=== PATIENT | female | born 1960 | race Caucasian/White ===

== ENCOUNTER → 2020-05-29 | Day surgery (SDC) | payer OTHER ==
[~2020-05-29] MED LIST: ATIVAN1 MG; DEXAMETHASONE4 MG; DIAMODE2 MG PO; FASLODEX250 MG/5 M IM; FISH OIL500 MG PO; HYDROCODON-ACE1 EA10 PO; IBRANCE100 MG PO; LEVOTHYROXINE75 MCG PO; LORAZEPAM1 MG PO; MAGNESIUM250 M1 PO; MOTRIN IB200 MG PO; MUCINEX600 MG PO; NORCO 5-325 TA1 EACH PO; VERZENIO150 MG PO; VITAMIN B-121000 MC1 PO; VITAMIN B-6100 MG PO; VITAMIN D2000 UNIT PO; VITAMIN E100 UNI3 PO; ZOFRAN ODT4 MG; ZOLEDRONIC4 MG/100 M IV
--- NOTE | 2020-05-29 09:10 | NUR ---
PATIENT AMBULATED INTO DEPARTMENT, STEADY ON FEET. VSS STABLE. PATIENT NOW WAITING FOR DR. AVINA. CONSENT SIGNED. CALL LIGHT IN REACH. NO OTHER NEEDS AT THIS TIME.
--- NOTE | 2020-05-29 12:46 | NUR ---
1200: DR. AVINA IN ROOM TALKING WITH PATIENT ABOUT THORACENTESIS. 1230: THORACENTESIS BY DR. AVINA COMPLETE. PATIENT TOLERATED PROCEDURE WELL. PATIENT DOES C/O OF CHEST TIGHTNESS WITH BREATHING. DR. AVINA AWARE. VS CHECKED. CALL LIGHT WITHIN REACH. 1245: X-RAY IN ROOM TO TAKE CHEST X-RAY.
--- NOTE | 2020-05-29 12:49 | NUR ---
DR. AVINA REVIEWED CHEST X-RAY. PATIENT MAY DISCHARGE WHEN READY. PATIENT STATES "FEELING GOOD". PATIENT GETTING DRESSED.
--- NOTE | 2020-05-29 15:38 | NUR ---
1300: PATIENT DISCHARGED TO HOME AMBULATORY. PATIENT OFFERED WHEELCHAIR. PATIENT DECLINED. THIS RN WALKED WITH PATIENT OUT TO HER TRANSPORT VAN.
--- NOTE | 2020-06-01 08:25 | OR ---
[facility] [address] [place], [place] [address] Signed DATE OF OPERATION: 05/29/2020 SURGEON: Ryan Avina MD PREOPERATIVE DIAGNOSES: 1. Symptomatic right recurrent pleural effusion. 2. Metastatic breast cancer. POSTOPERATIVE DIAGNOSES: 1. Symptomatic right recurrent pleural effusion. 2. Metastatic breast cancer. PROCEDURE: Right-sided thoracentesis (1.5 L). ANESTHESIA: 1% lidocaine. INDICATION: This 59-year-old white woman is a patient of Dr. Laws and Dr. Lloyd and has undergone right mastectomy and axillary dissection in 2016 by me for stage III breast cancer. She did suffer recurrence and metastatic disease and has been managed by Dr. Laws with chemotherapy. She did undergo radiation therapy under the direction of Dr. Graciela Collins previously as well. She has had recurrent right pleural effusion, which is markedly symptomatic for her. She self-referred to [facility] in November and in March for thoracentesis, which was accomplished without problem. She was recently recommended by Dr. Laws to consider right pleurodesis and was referred to me on that basis. I saw her yesterday at which time, she was significantly dyspneic and wished to have thoracentesis once again. Her CT scan performed in April showed possible loculation in the lower lobe on the right side and an increased pleural effusion on the right side. She would be a good candidate for pleurodesis if good expansion of her lung is noted. On that basis today, she is undergoing right thoracentesis for symptom control. Also, to assess as guess can be with plain x-rays her level of full expansion of the lung, which would make her a good candidate for palliative pleurodesis. Other options if pleurodesis is not likely effective would be a PleurX catheter for recurrent pleural fluid removal as necessary. The risk of thoracentesis was reviewed with her, which includes but is not limited to Electronically Signed By: RYAN AVINA MD 06/01/20 0825 PATIENT NAME: OSIRIS RIVERA OPERATIVE REPORT DATE OF : 56 REPORT #: [id number] PHYSICIAN: RYAN AVINA MD PCP: MARIE LLOYD MD REPORT IS CONFIDENTIAL AND NOT TO BE RELEASED WITHOUT AUTHORIZATION [facility] [address] [place] [address] Signed bleeding, infection, pneumothorax, re-expansion pulmonary edema, and other unforeseen complications. All of this she understands and wishes to proceed. FINDINGS: Straw-colored yellow clear fluid was noted from the right pleural space. A pre-procedure chest x-ray showed haziness to 1/2 of the lung field. The upper lung macias quite clear. A postprocedure x-ray is pending. DESCRIPTION OF PROCEDURE: In the Day Surgery Area, in room #8, she was placed in the upright position with arms draped over a Jurado stand and a pillow. The tip of the scapula was identified and the posterior thorax on the right side prepared with a chlorhexidine solution and draped sterilely. A 1% lidocaine was injected directly over the 7th rib. The pleural space was entered and a thin yellow pleural fluid was noted. Using a thoracentesis catheter, direct puncture to the pleural space was made over the 7th rib delivering a straw-colored fluid. A 3-way stopcock and tubing was used to apply the fluid to a Vacutainer bottle. At the 50% (500 mL) frieda flow was discontinued so as to allow her to "catch up" as she has previously had symptoms with withdrawal of only 1 L of fluid. In time reestablishment of flow was undertaken, ultimately removing the single liter of fluid without much in the way of symptoms. She did feel a difference with expansion of the lung. An additional 500 mL was ultimately removed very slowly and cautiously due to some symptoms of "tightness" as she had experienced some previous thoracentesis episodes. Ultimately, we discontinued thoracentesis at 1500 mL total. A Band-Aid was applied after removal of the catheter. A chest x-ray is pending. She had no severe symptoms and generally is doing well. Ryan Avina MD /MODL /[id number] cc: MD Kj Schultz MD Dr. Kristen Riegert Electronically Signed By: RYAN AVINA MD 06/01/20 0825 PATIENT NAME: OSIRIS RIVERA OPERATIVE REPORT DATE OF : 56 REPORT #: [id number] PHYSICIAN: RYAN AVINA MD PCP: MARIE LLOYD MD REPORT IS CONFIDENTIAL AND NOT TO BE RELEASED WITHOUT AUTHORIZATION [address], [place] [address] Signed Sarthak De León Copies: MARIE LLOYD MD, ROBERT C MD ~ Electronically Signed By: RYAN AVINA MD 06/01/20 0825 PATIENT NAME: OSIRIS RIVERA OPERATIVE REPORT DATE OF : 56 REPORT #: [id number] PHYSICIAN: RYAN AVINA MD PCP: MARIE LLOYD MD REPORT IS CONFIDENTIAL AND NOT TO BE RELEASED WITHOUT AUTHORIZATION
== END ==
LOC: OPS 08:52 → DS 09:00
PROC: 0W993ZZ Drainage of Right Pleural Cavity, Percutaneous Approach (ICD-10-PCS; principal; 2020-05-29)
DX: J90 Pleural effusion, not elsewhere classified (principal); C50.911 Malignant neoplasm of unspecified site of right female breast; E03.9 Hypothyroidism, unspecified; F32.9 Major depressive disorder, single episode, unspecified; Z90.11 Acquired absence of right breast and nipple; Z79.899 Other long term (current) drug therapy; Z87.891 Personal history of nicotine dependence
CPT/HCPCS: 32555; 71045

== ENCOUNTER 2020-07-02 09:34 | Day surgery (SDC) | payer OTHER ==
--- NOTE | 2020-07-02 10:01 | NUR ---
PATIENT WAITING IN THE TREATMENT ROOM. GOWN IN PLACE. CALL LIGHT IS WITHIN REACH. PATIENT IS ELECTING TO SIT IN THE FOLDING CHAIR IT IS EASIER FOR HER TO BREATHE THERE.
--- NOTE | 2020-07-06 11:28 | OR ---
[facility] [address] [place], [place] [address] Signed DATE OF OPERATION: 07/02/2020 SURGEON: Ryan Avina MD PREOPERATIVE DIAGNOSES: 1. Recurrent symptomatic right pleural effusion. 2. History of advanced breast cancer. POSTOPERATIVE DIAGNOSES: 1. Recurrent symptomatic right pleural effusion. 2. History of advanced breast cancer. PROCEDURE: Right-sided thoracentesis, 1.25 L. ANESTHESIA: 1% lidocaine. INDICATIONS: This is a very pleasant 59-year-old Ukrainian-[place] Zealander woman, has undergone breast cancer treatment and has had recurrence and is known to have metastatic disease. She remains a patient of Dr. Gamino. She underwent mastectomy by me on the right side, where she was found to have stage III disease at the outset of treatment. She has had recurrence and has developed recurrent right-sided pleural effusion. She underwent right-sided thoracentesis by me a few weeks ago for symptomatic control. I had advocated she consider right pleurodesis. She is still thinking about that. She did have relief of symptoms of dyspnea with her previous thoracentesis. She has had reaccumulation of fluid and wished to undergo thoracentesis again. We have discussed in detail the options of additional management including pleurodesis versus indwelling catheter and so forth. She wishes most on this. For today, right thoracentesis was anticipated to further assess that there was good expansion of the lung to allow right-sided pleurodesis as an effective option. She understands the risks of bleeding, infection, pneumothorax, and so forth and wished to proceed. FINDINGS: Clear yellow fluid was withdrawn from the right pleural space, 1.25 L was removed. The postprocedure chest x-ray showed complete expansion of the lung, no sign of residual effusion. It was noted she has haziness in the left lung field, which was suggestive to me of bilateral effusion, but certainly nothing as large as on the right side. Electronically Signed By: RYAN AVINA MD 07/06/20 1128 PATIENT NAME: OSIRIS RIVERA OPERATIVE REPORT DATE OF : 56 REPORT #: [id number] PHYSICIAN: RYAN AVINA MD PCP: MARIE LLOYD MD REPORT IS CONFIDENTIAL AND NOT TO BE RELEASED WITHOUT AUTHORIZATION [facility] [address] [place], [place] [address] Signed DESCRIPTION OF PROCEDURE: The patient underwent a chest x-ray prior to the procedure showing right-sided haziness and some left lower pleural space haziness as well. She was placed in upright position with arms draped over pillow and the tip of the scapula outlined with a pen. The area was then prepared with a chlorhexidine solution and draped sterilely. Sterile mask, gloves, gown, and so forth were used. A 1% lidocaine was injected over approximately the seventh rib, easily palpated as she has a thinner body habitus in the past. Using a thoracentesis needle catheter system pleural space was entered and aspiration of clear straw-colored fluid was noted. The catheter was advanced into the pleural space. Using a three-way stopcock and Vacutainer bottles, 1.25 L of fluid was drawn off without problem. As expected, she had a small amount of coughing at conclusion of the procedure, which abated quickly. A small amount of discomfort was transient as well. A Band-Aid was applied upon withdrawal of the catheter, no more fluid was withdrawal from the right pleural space. A chest x-ray was performed showing complete expansion of the right lung. CONCLUDING DIAGNOSIS: Recurrent right pleural effusion, symptomatic. PLAN: She will consider further my recommendation for right pleurodesis. Continued observation regarding the left pleural space will be warranted as she does seem to have some effusion developing on that side, though nothing as large as on the right. Ryan Avina MD /MODL /[id number] cc: Paras Gamino MD Copies: PARAS GAMINO MD ~ Electronically Signed By: RYAN AVINA MD 07/06/20 1128 PATIENT NAME: OSIRIS RIVREA OPERATIVE REPORT DATE OF : 56 REPORT #: [id number] PHYSICIAN: RYAN AVINA MD PCP: MARIE LLOYD MD REPORT IS CONFIDENTIAL AND NOT TO BE RELEASED WITHOUT AUTHORIZATION
== END 2020-07-02 11:30 | disposition home or self-care (01) ==
LOC: OPS 09:34 → DS 09:34 → OPS 11:15
PROVIDERS: ATTEND Surgery
PROC: 0W993ZX Drainage of Right Pleural Cavity, Percutaneous Approach, Diagnostic (ICD-10-PCS; principal; 2020-07-02)
DX: C50.919 Malignant neoplasm of unspecified site of unspecified female breast (principal); C79.51 Secondary malignant neoplasm of bone; J91.0 Malignant pleural effusion; G89.3 Neoplasm related pain (acute) (chronic)
CPT/HCPCS: 32555; 71045

== ENCOUNTER 2020-07-20 17:47 | Emergency (ER) | payer OTHER ==
[~2020-07-20] VITALS: Ht 152.4 cm; Wt 52.2 kg
--- OUTSIDE RECORDS SUMMARY | 2020-07-20 17:54 | XMS ---
PreManage Notification: OSIRIS RIVERA Security Assistant Counsel Events No recent Security Events currently on file CRITERIA MET - ELSIP CARE PROVIDERS MARIE LLOYD [facility] Current PHONE: [phone] Caron has no Care Guidelines for this patient. [place] VISIT COUNT (12 MO.) 1 [facility] Alfaro TOTAL 1 NOTE: Visits indicate total known visits. ED/UCC VISIT TRACKING (12 MO.) 07/20/2020 17:52 [facility] [place] TYPE: Emergency COMPLAINT: - SHORTNESS OF BREATH INPATIENT VISIT TRACKING (12 MO.) [facility] TYPE: [facility] COMPLAINT: - HYPOXIA, FEVER [email or web address]
--- NOTE | 2020-07-22 12:08 | OR ---
[facility] [address] [place], [place] [address] Signed DATE OF OPERATION: 07/20/2020 SURGEON: Ryan Avina MD PREOPERATIVE DIAGNOSES: 1. Symptomatic pleural effusions related to stage IV breast cancer. 2. Dominant left-sided pleural effusion. POSTOPERATIVE DIAGNOSES: 1. Symptomatic pleural effusions related to stage IV breast cancer. 2. Dominant left-sided pleural effusion. PROCEDURE: Left-sided thoracentesis 1.4 L. ANESTHESIA: 1% lidocaine. INDICATION: This 60-year-old Ghanaian Armenian woman from [facility] is known to me from the past having undergone right-sided thoracentesis at least twice approximately 3 times for symptomatic pleural effusion. The previous chest x-ray had shown a left-sided pleural effusion developing. I had recommended in the past that she consider palliative pleurodesis of the right side, which she has been considering and most recently has decided that she would like to proceed with it. In the meantime, she developed significant shortness of breath over the past few days. I called my office and I was in the operating room essentially all day and she was recommended if severely short of breath to present to the emergency room. She was evaluated by Dr. Harley and a chest x-ray was performed, which shows a sizable left-sided pleural effusion and haziness on the right side, but not nearly as much pleural effusion fluid on that side. Notably, she is short of breath, is unable to walk more than a few paces due to this issue. I have recommended left-sided thoracentesis anticipating definitive pleurodesis right and left side ultimately. The risks of bleeding, infection, pneumothorax, and so forth were reviewed with her. She understands as does her daughter, who accompanies her. FINDINGS: Straightforward left-sided thoracentesis was performed without complication. Postprocedure chest x-ray is pending. A 1.4 L of neri fluid was withdrawn from the pleural space. As per her usual routine, she did have a fair amount of coughing and some slight chest pain on the left side upon withdrawal of about 800 mL. Sequential Electronically Signed By: RYAN AVINA MD 07/22/20 1208 PATIENT NAME: OSIRIS RIVERA OPERATIVE REPORT DATE OF : 56 REPORT #: [id number] PHYSICIAN: RYAN AVINA MD PCP: MARIE LLOYD MD REPORT IS CONFIDENTIAL AND NOT TO BE RELEASED WITHOUT AUTHORIZATION [facility] [address] [place], [place] [address] Signed withdrawal of additional amount of fluid allowed for complete clearance of the pleural space clinically. She tolerated procedure well in aggregate. DESCRIPTION OF PROCEDURE: In the upright position with arms draped over a Jurado stand, the tip of the scapula was marked with a marker and the left side of the posterior chest was prepared with a chlorhexidine solution and draped sterilely. A 1% lidocaine was injected over likely the 7th rib. The pleural space was entered with the thin needle with drying of pleural fluid without problem. A thoracentesis catheter with three-way stopcock was then carefully passed over the 7th rib into the pleural space with groin fluid and passing the flexible angiocatheter without impediment. Using the stopcock of fluid was transferred from the left pleural space to the 1 L of Vacutainer bottle. Withdrawal of fluid was slowed down at about 800 mL when she began to have some coughing and some discomfort, which is expected in such situations. Sequential withdrawal of fluid was then undertaken, ultimately allowing for withdrawal of 1.4 L of pleural fluid. At that point, there was no withdrawal of any more fluid and I believe the left pleural space is tapped dry at this point. Chest x-ray is pending. A Band-Aid was applied. MD MELANIE Navas/MAURICIOL /[id number] Copies: ~ Electronically Signed By: RYAN AIVNA MD 07/22/20 1208 PATIENT NAME: OSIRIS RIVERA OPERATIVE REPORT DATE OF : 56 REPORT #: [id number] PHYSICIAN: RYAN AVINA MD PCP: MARIE LLOYD MD REPORT IS CONFIDENTIAL AND NOT TO BE RELEASED WITHOUT AUTHORIZATION
--- NOTE | 2020-07-22 12:08 | CONS ---
[facility] [address] [place], [place] [address] Signed DATE OF CONSULTATION: 07/20/2020 CONSULTING PHYSICIAN: Ryan Avina MD REQUESTING PHYSICIAN: Dr. Harley [facility]. PROBLEM: Symptomatic pleural effusion, left greater than right. HISTORY OF PRESENT ILLNESS: This 60-year-old white woman is known to have stage IV breast cancer and has undergone thoracentesis by me on the right side in the past for palliative intent. She had bulked at the idea of definitive pleurodesis, but more recently has agreed that might be advisable. She presented to the emergency room after being directed there by my office in my absence while in the operating room today, was evaluated by Dr. Driver for her shortness of breath, which has been progressive and significant. She has had no associated hemoptysis. A chest x-ray was performed, which showed a left-sided pleural effusion far greater in size than on the right. There was some haziness in the right side, but not nearly as much as pleural fluid is on the left. The patient has had no other issues and has no particular pain in the chest or elsewhere. REVIEW OF SYSTEMS: No hemoptysis or hematemesis. Does have shortness of breath, much limited activity level related to her dyspnea. PHYSICAL EXAMINATION: GENERAL: A relatively thin white woman with a heavy Azeri accent (originally from [place]). NECK: Shows no thyromegaly or cervical adenopathy. There is no jugular venous distention or tracheal deviation. CHEST: Shows diminished respiratory excursion. The chest x-ray shows a sizable left pleural effusion, right side hazy, but far less in size of pleural effusion. EXTREMITIES: Show no clubbing, cyanosis, or edema. ASSESSMENT AND PLAN: She is short of breath related to pleural effusion, this time more dominantly on the left side. I have offered thoracentesis. A definitive plan for pleurodesis might be undertaken. I have made arrangements for consideration of thoracoscopic pleurodesis versus chest tube related chemical pleurodesis. The definitive question regarding pleurodesis is dependent on full expansion of the lung to allow apposition of the Electronically Signed By: RYAN AVINA MD 07/22/20 1208 PATIENT NAME: OSIRIS RIVERA CONSULTATION DATE OF : 56 REPORT #: [id number] PHYSICIAN: RYAN AVINA MD PCP: MARIE LLOYD MD REPORT IS CONFIDENTIAL AND NOT TO BE RELEASED WITHOUT AUTHORIZATION [facility] [address] [place] [address] Signed visceral and parietal pleura. She is aware of that. The risks of bleeding, infection, pneumothorax, and so forth were reviewed with her and her daughter, who was present anticipating thoracentesis. MD MELANIE Navas/CORBIN /[id number] cc: MD Paras WILSON MD Copies: PARAS GAMINO MD ~ Electronically Signed By: RYAN AVINA MD 07/22/20 1208 PATIENT NAME: OSIRIS RIVERA CONSULTATION DATE OF : 56 REPORT #: [id number] PHYSICIAN: RYAN AVINA MD PCP: MARIE LLOYD MD REPORT IS CONFIDENTIAL AND NOT TO BE RELEASED WITHOUT AUTHORIZATION
== END 2020-07-20 20:41 | disposition home or self-care (01) ==
LOC: ED 17:47
DX: C78.00 Secondary malignant neoplasm of unspecified lung (principal); C79.51 Secondary malignant neoplasm of bone; C50.919 Malignant neoplasm of unspecified site of unspecified female breast; J91.0 Malignant pleural effusion; E03.9 Hypothyroidism, unspecified; Z87.891 Personal history of nicotine dependence; Z79.899 Other long term (current) drug therapy
CPT/HCPCS: 71045; 80053; 83735; 84484; 85025; 99285-25

== ENCOUNTER 2020-07-24 11:03 | Inpatient (IN) | payer OTHER ==
[~2020-07-24] VITALS: Ht 152.4 cm; Wt 50.9 kg
--- NOTE | ~2020-07-24 | DS ---
[facility] [address] [place], [place] [address] Draft ADMISSION DATE: 07/30/2020 DISCHARGE DATE: 08/05/2020 REASON FOR ADMISSION: This 60-year-old [place] Konger-Indian woman, who is from [facility] and a patient of Dr. Benja Lloyd and Dr. Paras Gamino. She is known to have metastatic breast cancer with bilateral pleural effusions. Most recently, the left side more problematic. Metastatic breast cancer is not only to the lung and pleura, but to bones and elsewhere. She is admitted for palliative left-sided pleurodesis. PERTINENT PHYSICAL EXAMINATION: GENERAL: A pleasant white woman, who is alert and oriented. Does look chronically ill. HEENT: Trachea midline. CHEST: Shows diminished breath sounds bilaterally. She has no stridor. She is slightly hoarse. There is no jugular venous distention. ABDOMEN: Soft and nontender. Surgical absence of the right breast and implant is noted on the left side. EXTREMITIES: Show no clubbing, cyanosis, or edema. HOSPITAL COURSE: On July 30, 2020, she underwent left-sided thoracoscopy with talc pleurodesis. Delivery of a talc without an insufflator was challenging and 3 mg doses were used. A chest tube was placed. Postoperatively, she had only mild discomfort related to the procedure. Followup chest x-ray was performed showing a tiny apical pneumothorax, but no sign of recurrence of pleural fluid. Chest tube in the first 48 hours did put out a fair amount of serous fluid. Good function of the chest tube was noted with respiratory variation and so on. There is no sign of air leak. Mindful of the uncertainty of talc poudrage pleurodesis attempt. Additional gram of doxycycline and 100 mL of saline was administered via the chest tube on July 31, 2020. This caused a fair amount of discomfort in her pleural space, which was addressed with IV medication with good benefit. She was noted to have a slight air leak at that time. A followup chest x-ray showed an apical pneumothorax, which over the ensuing days became less and less. Within 48 hours, the chest tube was completely nonfunctional. There was PATIENT NAME: OSIRIS RIVERA DISCHARGE SUMMARY DATE OF : 56 REPORT #: [id number] PHYSICIAN: RYAN AVINA MD PCP: BENJA LLOYD MD REPORT IS CONFIDENTIAL AND NOT TO BE RELEASED WITHOUT AUTHORIZATION [facility] [address] [place], [place] [address] Draft no air leak or respiratory variation. The chest tube was removed. Serial chest x-ray showed the apical pneumothorax to be diminishing in size. The patient was most comfortable with supplemental oxygen, use of 2 L nasal cannula continuously. She was qualified for home oxygen, but denied by [facility] for payment of that as it did not fit their strict criteria for home oxygen therapy. Re-evaluation in 2-4 weeks as an outpatient will be undertaken and I am certain that she will still qualify. A chest x-ray performed the day prior to discharge showed a 9 mm apical pneumothorax, haziness in the parenchyma of the left lung, but no sign of large effusion as she had previously. Additionally, the right side showed a complex probably loculated right basilar process with some amount of effusion. Going forward, options of management of the right side might include placement of a PleurX catheter as it is unlikely that her right lung would inflate to allow for a pleurodesis on that side. By the time of discharge, she is medically stationary and doing reasonably well following her palliative left-sided thoracoscopic talc and doxycycline pleurodesis. DISCHARGE MEDICATIONS: Will include: 1. Lortab liquid 7.5/325, 15 mL p.o. q.6 hours as needed for pain, 240 mL. 2. Tylenol plain 500 mg tablets two tablets p.o. q.6 hours as needed for pain, #60 (patient prefers crushed form). 3. Pepcid 20 mg tablets p.o. b.i.d., #60. 4. Synthroid 100 mcg p.o. daily. 5. Ferrous gluconate multivitamin liquid 15 mL p.o. daily. 6. Albuterol inhaler one puff q.6 hours as needed for shortness of breath. Additionally, she will have Zofran all dissolving 4 mg tablets q.6 hours as needed for nausea. FOLLOW-UP PLANS: Given the difficulty for her to travel from so far away in [place] as well as impending adverse weather in this fall and winter, phone followup will be anticipated. Her primary care provider is Dr. Lloyd in [place]. We are anticipating he will additionally follow up with her. Oxygen qualification has been undertaken once while hospitalized and if repeated may more fully enable her to have home oxygen under the coverage parameters for [facility]. PATIENT NAME: OSIRIS RIVERA DISCHARGE SUMMARY DATE OF : 56 REPORT #: [id number] PHYSICIAN: RYAN AVINA MD PCP: BENJA LLOYD MD REPORT IS CONFIDENTIAL AND NOT TO BE RELEASED WITHOUT AUTHORIZATION [place] [phone] Draft DISCHARGE DIAGNOSES: 1. Bilateral malignant pleural effusion secondary to breast cancer, left greater than right. 2. Status post thoracoscopic talc and doxycycline left-sided pleurodesis, July 30, 2020. 3. Additional doxycycline left-sided pleurodesis via chest tube at bedside, July 31, 2020. 4. Chronic episodic nausea and vomiting, etiology unknown. 5. History of stage III breast cancer progression to distant metastatic lesion including pulmonary parenchyma and pleural space and bones related to right-sided infiltrating ductal carcinoma, status post total mastectomy and axillary dissection in 2017. 6. Hypothyroidism. MD MELANIE Navas/MODL /[id number] cc: MD Benja Lama MD Copies: PARAS GAMINO MD, DANIEL C MD ~ PATIENT NAME: OSIRIS RIVERA DISCHARGE SUMMARY DATE OF : 56 REPORT #: [id number] PHYSICIAN: RYAN AVINA MD PCP: BENJA LLOYD MD REPORT IS CONFIDENTIAL AND NOT TO BE RELEASED WITHOUT AUTHORIZATION
[~2020-07-24 11:03] MED LIST changes: +HYDROCODONE CO120 ML; +LEVOTHYROXINE100 MCG PO; -LEVOTHYROXINE75 MCG PO; -NORCO 5-325 TA1 EACH PO
[2020-07-27] MEDS ORDERED: MULTI-VITE9 MG/15 ML PO (17:20)
--- NOTE | 2020-07-30 12:01 | NUR ---
07/30/20 1201 Melodie Villegas 1150 PATIENT ARRIVES TO PACU UNRESPONSIVE TO PAIN. REQUIRES RN TO HOLD JAW THRUST, OTHERWISE FULL AIRWAY OCCULSION. MASK AT 6 LITERS. PATIENT HAS CHEST TUBE LEFT CHEST WALL ATTACHED TO SUCTION. 1159 PATIENT CONTINUES TO UNRESPONSIVE TO PAIN. RN CONTINUES TO HOLD JAW THRUST.
--- NOTE | 2020-07-30 13:43 | NUR ---
PT RESTING IN SEMIFOWLERS POSITION IN BED ALERT AND ORIENTED CALL LIGHT AND H2O IN REACH. CHEST TUBE APPEARS TO BE FUNCTIONING CORRECTLY WITH LIWS. PT SATTING AT 98% PER PULSE OXIMETER ON 2LPNC. PT DENIES SOB OR NAUSEA BUT REPORTS 5/10 PAIN TO LEFT UPPER SIDE AT CHEST TUBE SITE AND CHRONIC BACK PAIN ASWELL. PRN PO TYLENOL CRUSHED AND MIXED WITH WATER PER PT REQUEST. PT DENIES FURTHER NEEDS OR CONCERNS.
--- NOTE | 2020-07-30 16:03 | NUR ---
Pt resting in semifowlers position in bed denies needs or concerns, o2 sat 98% on 2lpnc. Chest tube appears to be functioning appropriatley on liws. Call light and h2o in reach. pt denies nausea, sob and states pain level feels like it is coming down.
--- NOTE | 2020-07-30 17:45 | NUR ---
PT RESTING IN SEMIFOWLERS POSITION IN BED ALERT AND ORIENTED, DENIES SOB, [place] AND STATES PAIN IS TOLERABLE. CALL LIGHT AND H2O IN REACH. CHEST TUBE REMAINS TO LIWS AND OPERATING WNL. ASSESSMENT COMPLETED. PT DENIES NEEDS OR CONCERNS.
--- NOTE | 2020-07-30 19:44 | NUR ---
C/O BEING SICK TO HER STOMACH, FEELING NAUSEATED. MEDICATED WITH ZOFRAN 4MG IV. ON ROOM AIR, OLD SURGICAL SITE R BREAT, R AM RESTRICTED. L SIDED CHEST TUBE IN PLACE, PATENT. SCDS IN PLACE, WILL COMPLETE ASSESSMENT LATER AFTER SHE FEEL BETTER WAND REASSESS AT 2130 HER REQUEST. REPOSITONED IN BED, HOB ELEVATED. USES CALL LIGHT AND FLUIDS AT BEDSIDE
--- NOTE | 2020-07-30 22:00 | NUR ---
2PA PIVOT PT TO BSC, PT VOIDED, PT STOOD UP TO STRETCH FOR A SECOND BEFORE GETTING BK INTO BED, 2PA PT WITH TUBE MGMT, INC. CHEST TUBE, IV, O2 NC, AND CPOX WIRE, RN IN WITH PT, NO FURTHER REQUESTS AT THIS TIME, PROVIDED WARM BLANKET TO PT
--- NOTE | 2020-07-30 22:17 | NUR ---
up to bsc, voided, back to bed, tolerated well, no sob, on room air. l chest tube patent, scds in place, tolerating liquids well, no further c/o feeling nauseated. scheduled tylenol given mixed/disolved in warm water.
--- NOTE | 2020-07-30 22:29 | NUR ---
DR AVINA IN ROOM EARLIER TO SEE PT.
--- NOTE | 2020-07-31 00:12 | NUR ---
PT CALLED TO GET UP TO BSC, 2PA STAND WITH TUBE MGMT, BK VOIDED AND BK IN BED, SCDS ON CPOX ON, PT REQUESTING PAIN MED, RN IN TO ASSESS PT, NO FURTHER REQUESTS AT THIS TIME
--- NOTE | 2020-07-31 00:15 | NUR ---
up to bsc, back to bed, tolerated well, O2 1L NC, sats 94%, c/o L sided pain, medicated with 2 [place]
--- NOTE | 2020-07-31 03:10 | NUR ---
resting, no c/o pain, no distress, o2 0.5nc, CPOX 95%, call light at bedside L chest tube patnt
--- NOTE | 2020-07-31 04:09 | NUR ---
restin, eyes closed, o2 0.5L NC, no distress, ivf infusing, l chesst tube patent scds in place
--- NOTE | 2020-07-31 05:57 | NUR ---
pt had some discharge from ct insertion site, reinforced with abd pad. c/o feeling nauseated. medicated with zofran 8mg IV. awake, no further c/o pain, declines to take Tylenol scheduled as she is feeling sick to her stomach at this time.
--- NOTE | 2020-07-31 06:44 | NUR ---
Pt O2 increaed to 1L earlier as sats were 84-89%, pt was moving around in bed going through her travel bag. Has been medicated with scheduled Tylenol anad she declined the 0600 dosa. Medicated with [place] x1 per c/o generalized pain. Medicated with Zofran 2x per c/o n/v, no emesis noted, prior to that pt was tolerating ice chips and fluids. L chest tube was leasking ss drainage,at insertion site, area reinforced with abd. gown changed. Pleurovac to suction had total 185cc. lungs dim at bases and left side. Up to bsc with 1pa, voiding qs, ivf infusing w/o problems. Pleasant and coop. uses call light and helps with repositioning, scds in place.
[2020-07-31] MEDS ORDERED: PROAIR HFA8.5 GM INH (07:25)
--- NOTE | 2020-07-31 07:29 | NUR ---
PT RESTING IN BED EYES CLOSED AND RESPIRATIONS EVEN AND UNLABORED. CALL LIGHT AND H2O IN REACH. PT APPEARS TO BE SLEEPING COMFORTABLY. REPORT RECEIVED FROM MARITZA VIRGEN.
--- NOTE | 2020-07-31 09:21 | NUR ---
PT C/O PAIN IN THE CHEST TUBE AREA AND BONE PAIN AT THIS TIME 7/10 MEDICATED FOR PAIN AT THIS TIME WITH 2 TABS OF PERCETS AT THIS TIME.
--- NOTE | 2020-07-31 09:37 | NUR ---
pt sitting up in bed alert and oriented. Assessment completed. dressing to chest tube saturated and coming off. Dressing was replaced per Dr Muñoz's verbal instructions. Old dressing caerfuly removed, site cleansed with ns and pat dried with guaze and guaze and tape reapplied to insertions site. Chest tube remains to LIWS and appears to be oporating correctly and producing moderate serosang output to chest tube canister. Call light and h2o in reach. Pt reports moderate pain to abdomen and to left chest tube insertion site so IV toradol administered per pt request. Pt denies further needs or concerns.
--- NOTE | 2020-07-31 09:40 | NUR ---
Met with pt and had long visit about her future and what she thinks her needs will be. She states her PCP has been discussing hospice with her, she is also aware she will need a cg in the future as she lives alone. Daughter visits daily, but has family and works. Answered question about caregivers and insurance/medicare not paying for cg in the home. Discussed [employer] and possibility of a state paid cg. Information given for [employer], she already has the numbers as she uses other programs. Hospice discussed and their criteria. We also discussed [facility]. She is already aware of most of the information. Feels she is not ready at this time for these programs, but stating she knows she will need. Discussed if she qualifies for CG through [facility] it can take [address]. Feels she is ok at this point and plans on dc to home when ok with Dr. Muñoz. 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 She also states she has neighbors who check on her daily and are very supportive. Discussed if she feels she will need a walker and she states she might. Pt has chest tube in place, will ask Dr. Muñoz if PT/OT can eval when she is able to get up. Pt complains of pain, nurse updated and discussed I will see Martha on Monday. She denies other needs.
--- NOTE | 2020-07-31 11:54 | NUR ---
PT ALERT, ORIENTED AND LAYING IN BED READING. NOT BOTHERED BY TV NOT WORKING. PT FEELS BETTER, CHEST TUBE WORKING. PT HAS REALLY GOOD ATTITUDE, TAKING ONE DAY AT A TIME. REQUESTED PRAYER, LEFT G.POST WILL FOLLOW
--- NOTE | 2020-07-31 13:07 | NUR ---
PATIENT WAS EATING LUNCH WHEN I STOPPED BY AROUND 12:30. SHE IS WORKING ON EATING HER VEGETABLES - SHE WAS EATING PEAS WITH CHICKEN BREAS AND PASTA. SHE STATES DUE TO HAVING CANCER SHE HAS GRADUALLY BEEN LOSING WEIGHT. SHE NEEDS SOFT FOODS TO EAT, TOO. SHE HAS A GREENS POWDER THAT SHE MAKES A GREEN DRINK WITH AT HOME. SHE ALSO HAS A JUICER WHICH SHE USES FROM TIME TO TIME. SHE ASKED IF THERE WAS ANYTHING IN PARTICULAR SHE SHOULD BE DOING AND I MENTIONED BE SURE TO CONSUME PROTEIN THROUGHOUT THE DAY, AIM FOR DIFFERENT COLORS OF FRUITS AND VEGGIES, AND KEEP PROCESSED FOODS AND SUGARY BEVERAGES TO A MINIMUM. I ALSO EXPLAINED THAT IF SHE FINDS SHE CONTINUES TO LOSE WEIGHT, SHE CAN ADD OIL, BUTTER, OR CHEESE TO FOOD TO INCREASE THE CALORIES WITHOUT INCREASING THE VOLUME OF FOOD. SHE IS ON A REGULAR DIET WHICH IS APPROPRIATE. WILL CONTINUE TO MONITOR.
--- NOTE | 2020-07-31 14:55 | NUR ---
DR AVINA IN AT BEDSIDE ADMINISTERING ANTIBIOTIC THROUGH CHEST TUBE. PT REPORTS 9/10 PAIN WITH MEDICATION ADMINISTRATION, 4MG IV DILAUDID ADMINISTERED PER PT AND MD REQUEST. CALL LIGHT AND H2O IN REACH. PT SATTING 97% ON 2LPNC. DRESSING TO CHEST TUBE SATURATED AND AIR LEAK PRESENT SO MD REPLACED DRESSING AT THIS TIME. AIR LEAK NO LONGER PRESENT AND DRESSING CDI. CHEST TUBE APPEARS TO BE FUNCTIONING WNL. PT DENIES FURTHER NEEDS OR CONCERNS.
--- NOTE | 2020-07-31 16:53 | NUR ---
PT ASSISTED UP TO CHAIR FOR DINNER. PT TOLERATED AMBULATION WELL. PT STATES SHE IS COMFORTABLE AT THIS TIME. CALL LIGHT AND H2O IN REACH.
--- NOTE | 2020-07-31 17:20 | EKG ---
[facility] [address] [facility] [place], [place] [address] Signed Normal sinus rhythm Normal ECG No previous ECGs available Confirmed by JODI MARK DO ([id number]) on 07/31/2020 5:20:41 PM Electronically Signed By: JODI MARK DO 07/31/20 1720 PATIENT NAME: OSIRIS RIVERA Electrocardiogram DATE OF : 56 PHYSICIAN: JODI MARK DO REPORT #: [id number] REPORT IS CONFIDENTIAL AND NOT TO BE RELEASED WITHOUT AUTHORIZATION
--- NOTE | 2020-07-31 19:15 | NUR ---
Shift report recieved by RN. Pt is up in chair, L sided chest tube in place, clean, dry and intact. No s/s of infection noted. Pt states no pain at this time. Call light within reach, no further concerns or needs.
--- NOTE | 2020-07-31 21:33 | NUR ---
pt called, 1pa/sba with chest tube managemnt on to the bsc, pt bk in bed at this time, no further request at this time, will return to pt with rn for pm assessment, meds, and vitals
--- NOTE | 2020-07-31 22:15 | NUR ---
PT LYING IN BED, ASSESSMENT COMPLETE, I AND O'S COMPLETED SCHEDULED MEDS GIVEN. PRN PAIN MEDICATION GIVEN, PAIN SCALE 7/10. CHEST TUBE DRESSING C/D/I, TUBE PATENT AND WORKING APPROPRIATLY. NO SIGNS OF AIR LEAK. PT WAS ASSISTED BY WAXER OPERATOR 1P SBA TO THE COMMODE. CALL LIGHT WITHIN REACH,NO UNLABORED BREATHING AND NO FURTHER CONCERNS OR NEEDS AT THIS TIME.
--- NOTE | 2020-07-31 22:40 | NUR ---
IN RM TO TAKE VITALS PER RN REQUEST, RN COMPLETING ASSESSMENT, GOT PT UP TO THE BSC, ASST WITH TUBE MGMT, PT BK IN BED NOW, URINE OUTPUT RECORDED AND DOCUMENTED PER 2200 SHIFT VITALS, SCDS BK IN PLACE, CPOX BK ON, NO FURTHER REQUEST AT THIS TIME
--- NOTE | 2020-08-01 01:27 | NUR ---
PT RESTING QUIETLY IN BED WITH EYES CLOSED, CPOX IN PLACE. 1.5LNC IN PLACE, O2 SAT AND HR WNL. CHEST TUBE TO LEFT SIDE PATENT AND WORKING APPROPERIATELY, NO SIGNS OF AIR LEAK NOTED. CONNECTED TO CONTINUOUS LOW WALL SUCTION. PT APPEARS COMFORTABLE, CALL LIGHT IN REACH.
--- NOTE | 2020-08-01 03:51 | NUR ---
PT RESTING IN BED WITH CPOX IN PLACE, 1.5LNC. SPO2 AND HR WNL. NO DISTRESS NOTED. CHEST TUBE TO LEFT SIDE APPEARS TO BE WORKING APPROPERIATELY, NO SIGNS OF AIR LEAK NOTED. CALL LIGHT IN REACH.
--- NOTE | 2020-08-01 04:39 | NUR ---
PT RESTING IN BED, EYES CLOSED. LR CONTINUOUS RUNNING. CALL LIGHT WITHIN REACH. NO FURTHER CONCERNS OR NEEDS.
--- NOTE | 2020-08-01 05:26 | NUR ---
PT HAD A GOOD NIGHT, SLEPT FOR MOST OF THE SHIFT. VSS, CPOX IN PLACE. PT ON 1.5LNC. CHEST TUBE TO LEFT SIDE, DRESSING C/D/I, WORKING APPROPERIATELY. NO SIGNS OF AIR LEAK NOTED. PT 1PA WITH AMBULATION, CALLS APPROPERIATELY. IV FLUIDS INFUSING, VOIDING QS. NO BM THIS SHIFT. PAIN CONTROLLED WITH PRN PAIN MEDICATIONS.
--- NOTE | 2020-08-01 06:04 | NUR ---
scheduled thyroid med given along with prn toradol for moderate 4-5/10 pain (see emar). tylenol declined by pt. assessment complete, no new changes or concerns. dressing remains c/d/i, chest tube to left side patent, no signs of air leak noted. pt deneis additional needs, call light in reach.
--- NOTE | 2020-08-01 07:45 | NUR ---
PATIENT SITTING UP IN BED. WHITE BOARD UPDATED. PATIENT'S HANDS AND FACE WASHED. CALL LIGHT WITHIN REACH. NO OTHER NEEDS AT THIS TIME
--- NOTE | 2020-08-01 08:18 | NUR ---
CALL LIGHT ANSWERED. PATIENT ASSISTED TO USE THE BASE COMMODE. PATIENT TRANSFERRED TO CHAIR. TWO PERSON ASSISTING. SETS UP TABLE FOR BREAKFAST. LINENS CHANGED. CALL LIGHT WITHIN REACH. NO OTHER NEEDS AT THIS TIME
--- NOTE | 2020-08-01 08:50 | NUR ---
PT SITTING UP IN CHAIR EATING BREAKFAST. AM MEDS ADMINISTERED AND ASSESSMENT COMPLETED. CALL LIGHT AND H2O IN REACH. PT DENIES SOB, NAUSEA OR PAIN. PT REMAINS SATTING IN MID 90'S ON 2LPNC. FRESH H2O AND APPLES JUICE PROVIDED PER PT REQUEST. WARM BLANKET ALSO PROVIDED. NO FURTHER NEEDS OR CONCERNS VOICED.
--- NOTE | 2020-08-01 09:21 | NUR ---
PATIENT SITTING UP IN CHAIR. VITAL SIGNS AND I&O DONE. HIGH BLOOD PRESSURE. RN NOTIFIED. CALL LIGHT WITHIN REACH. NO OTHER NEEDS AT THIS TIME
--- NOTE | 2020-08-01 11:09 | NUR ---
IN TO SEE PATIENT, LUNCH ORDERED PER PT. IT WAS NOTED THAT PT'S CHEST TUBE HAS NO TIDALING OF THE WATER IN WATER SEAL CHAMBER AND NO BUBBLING PRESENT EITHER. DRESSING CHANGED AND CHEST TUBE SUCTION CHAMBER NEARLY FULL SO THIS WAS REPLACED WITH NEW CHAMBER AND STILL NO CHANGE. DR AVINA NOTIFIED OF THIS. NO NEW ORDERS RECEIVED FROM MD. PT'S O2 SATS REMAIN IN MID 90'S ON 2LPNC AND PT DENIES SOB BUT STATES SHE HAS BEEN COUGHING UP SOME PHLEGM SINCE LAST NIGHT. COUGHING UP SOME PHLEGM SINCE LAST NIGHT. NO NEW ORDERS RECEIVED FROM .
--- NOTE | 2020-08-01 13:51 | NUR ---
PATIENT SITTING UP IN BED. VITAL SIGNS AND I&O DONE. HIGH BLOOD PRESSURE. RN NOTIFIED. ICE WATER GIVEN. CALL LIGHT WITHIN REACH. NO OTHER NEEDS AT THIS TIME
--- NOTE | 2020-08-01 14:00 | NUR ---
DR AVINA NOTIFIED OF ELEVATED BLOOD PRESSURE.
--- NOTE | 2020-08-01 15:14 | NUR ---
CALL LIGHT ANSWERED.PATIENT RESTING IN BED. PATIENT ASSISTED TO USE THE BASE COMMODE. TWO PERSON ASSISTING. PATIENT BACKS TO BED. CALL LIGHT WITHIN REACH. NO OTHER NEEDS AT THIS TIME
--- NOTE | 2020-08-01 16:59 | NUR ---
PATIENT RESTING IN BED. VITAL SIGNS AND I&O DONE. CALL LIGHT WITHIN REACH. NO OTHER NEEDS AT THIS TIME
--- NOTE | 2020-08-01 19:51 | NUR ---
Shift report recieved by RN. Pt lying on bed, L sided occlusive dressing CDI. Nitro paste in place on upper left chest. No unlabored breathing. Call light withing reach. White board updated. No concerns or needs at this time.
--- NOTE | 2020-08-01 20:10 | NUR ---
pt up from the toilet, abmu in the before getting in to bed, will be in to give meds and rn pm assessment shortly
--- NOTE | 2020-08-01 20:17 | NUR ---
PT CALLED TO USE RESTROOM. SBA TO RESTROOM SHE WILL CALL WHEN SHE IS READY TO GO BACK TO BED.
--- NOTE | 2020-08-01 21:03 | NUR ---
IN RM TO TAKE VITALS, RN TO BE IN RM SHORLY, INFORMED RN ABOUT HIGH BP, TAKING BP AGAIN WITH THE RN
--- NOTE | 2020-08-01 21:30 | NUR ---
PT LYING IN BED, SCHEDULED MEDS GIVEN AND ASSESSMENT COMPLETE. VS AND I AND O'S DONE BY HUMAN RESOURCES COMPLIANCE MANAGER. PT REPORTS UNABLE TO HAVE A BM, PRUNE JUICE OFFERED, PT ACCEPTS. BOWEL TONES ACTIVE ALL FOUR QUADRANTS. PT REFUSED HAVING PAIN. NO UNLAVORED BREATHING. OCCLUSIVE DRESSING ON L SIDE CDI. NO UNLABORED BREATHING. RR WNL. NO FURTHER CONCERNS OR NEEDS.
--- NOTE | 2020-08-01 23:06 | NUR ---
PT RESTING QUIETLY IN BED WITH EYES CLOSED, RR WNL. CPOX IN PLACE WITH 1.5LNC, SPO2 91%, HR 107. NO DISTRESS NOTED. CALL LIGHT IN REACH.
--- NOTE | 2020-08-02 00:50 | NUR ---
PT RECENTLY UP WITH LABEL CODER TO VOID AND IS BACK IN BED. PT REPORTED MILD DIZZINESS BUT QUICKLY RESOLVED. VS STABLE, CPOX IN PLACE. 1 1/2 L NC.HR MILD TACHY AT 107. NITROPASTE REMOVED FROM LEFT CHEST. PRN PAIN MEDICATION GIVEN WITH ZOFRAN. JUICE OFFERED FOR CONSTIPATION BUT PT DECLINED. PT REPORTS INCREASE IN PASSING GAS. NO BM. NO FURTHER CONCERNS OR NEEDS AT THIS TIME.
--- NOTE | 2020-08-02 02:42 | NUR ---
OTHER NURSE ASSISTED PT TO THE RESTROOM AND REPOSITION. PT STATES THAT HE HAS NOT HAD ANY PAIN OR NUMBNESS AND TINGLING.I AND O'S CHARTED. NO UNLABRED BREATHING. RR WITHIN NORMAL LIMITS. OCCLUSINE DRESSING CDI. CALL LIGHT WITHIN REACH. NO FURTHER CONCERNS.
--- NOTE | 2020-08-02 04:26 | NUR ---
PT LYING IN BED, ASSESSMENT COMPLETE, STATES THAT SHE FEELS BETTER TAKING JUST ONE PERCOCET. CALL LIGHT WITHIN REACH, NO FURTHER CONCERNS OR NEEDS AT THIS TIME.
--- NOTE | 2020-08-02 06:55 | NUR ---
XRAY HERE, COMPLETE, GOT PT UP TO THE TOILET SBA WITH IV AND O2NC, PT VOIDED, NOW UP TO THE CHAIR, FRESH ICE WATER GIVEN, NO FURTHER REQUEST AT THIS TIME
--- NOTE | 2020-08-02 08:08 | NUR ---
NOTIFIED DR AVINA OF PT'S CONSTIPATION AND NO BM SINCE 07/29. NEW ORDER RECEIVED, ALSO UPDATED ON PT'S CURRENT CONDITION. NO FURTHER ORDERS AT THIS TIME.
--- NOTE | 2020-08-02 09:45 | NUR ---
PATIENT AWAKE, STANDING IN ROOM. "HOPING FOR A BM" VITALS AND I&OS CHARTED. FACE AND HANDS WASHED
--- NOTE | 2020-08-02 12:50 | NUR ---
ANSWERED CALL LIGHT, SBA BACK TO BED. SMALL FORMED BM. PATIENT REPORTS SHE FEELS LIKE "THERES STILL MORE" ATE VERY LITTLE LUNCH. WARM BLANKET PROVIDED AND CALL LIGHT/PERSONAL ITEMS IN REACH
--- NOTE | 2020-08-02 14:18 | NUR ---
PT REPORTS PERSISTING CONSTIPATION, PT STATES "I FEEL LIKE I'M STILL BACKED UP AND CONSTIPATED I COULD USE SOME MORE MEDICINE". MOM ADMNISTERED PER PT REQEUST. ASSESSMENT COMPLETED. PT DENIES FURTHER NEEDS. CALLLIGHT AND H2O IN REACH.
--- NOTE | 2020-08-02 14:54 | NUR ---
PT HAD LARGE LOOSE BROWN BM
--- NOTE | 2020-08-02 17:10 | NUR ---
PT ALERT AND ORIENTED HAS HAD SEVERAL LARGE LOOSE BM'S PT STATES SHE NO LONGER FEELS BLOATED OR CONSTIPATED. PT DENIES SOB ON 1.5LPNC AND IS MAINTAINING SATS IN MID 90'S. CALL LIGHT AND H2O IN REACH. NO NEEDS OR CONCERNS VOICED.
--- NOTE | 2020-08-02 19:05 | NUR ---
SHIFT REPORT RECIEVED. PT SITTING AT THE EDGE OF BED. WHITE BOARD CLEARED. CALL LIGHT WITHIN REACH. NO CONCERNS OR NEEDS AT THIS TIME.
--- NOTE | 2020-08-02 21:57 | NUR ---
ROUNDED CHARGE. VSS. BSC EMPTIED, CLEANED, MIX LIQUID STOOL AND URINE NOTED. ICE WATER PROVIDED. PRIMARY RNS IN ROOM.
--- NOTE | 2020-08-02 22:21 | NUR ---
PT LYING IN BED. SCHEDULED MEDS GIVEN, ASSESSMENT COMPLETE. VS STABLE. PT COMPLAINED OF 7/10 PAIN. PRN PERCOCET GIVEN. PT WAS ASSISTED BY MARITZA MARTIN TO THE COMMODE. OCCLUSIVE DRESSING CDI. CALL LIGHT WITHIN REACH, NO FURTHER NEEDS OR CONCERNS.
--- NOTE | 2020-08-03 01:50 | NUR ---
PT LYING IN BED, SHOWS UNLABORED BREATHING AND NO S/S OF SOB. PT DENIES HAVING PAIN. CALL LIGHT WITHIN REACH. NO FURTHER CONCERNS OR NEEDS.
--- NOTE | 2020-08-03 05:27 | NUR ---
Pt lying in bed.Assessment complete, vs stable. requested pain medication from pain on the left lateral side 7/10 and nausea. pt was given PRN meds. Pt was having SOB and o2 sat was in the high 80s after using commode. After lying back o2 sat was within normal limits. call light within reach. No further concerns or needs.
--- NOTE | 2020-08-03 05:29 | NUR ---
PT HAD A GOOD NIGHT, SLEPT OFF AND ON THIS SHIFT. VSS, 1.5LNC IN PLACE, MILD SOB WITH EXERTION. CPOX IN ROOM. A/O AND CALLS APPROPERIATELY. SBA WITH AMBULATION. REGULAR DIET, TOLERATING WELL. NAUSEA GIVEN WITH PRN PAIN MEDICATION. MULTIPLE BM'S THIS SHIFT, VOIDING QS. IV FLUIDS INFUSING. DRESSING TO LEFT LATERAL, C/D/I.
--- NOTE | 2020-08-03 06:48 | NUR ---
CALLED DR AVINA REGARDING CHEST XRAY. TELEPHONE ORDER READ BACK FOR SINGLE VIEW CHEST XRAY NOW. IMAGING AWARE.
--- NOTE | 2020-08-03 06:54 | NUR ---
IMAGING IN ROOM FOR SCHEDULED X-RAY.
--- NOTE | 2020-08-03 07:20 | NUR ---
PT ALERT AND ORIENTED RESTING IN BED. PT DENIES PAIN, SOB ON 1.5LPNC OR NAUSEA. BEDSIDE SHIFT REPORT RECEIVED FROM MARITZA DUNCAN. FRESH ICE WATER AND CALL LIGHT IN REACH.
--- NOTE | 2020-08-03 08:06 | NUR ---
PATIENT RESTING IN BED. WHITE BOARD UPDATED. CALL LIGHT WITHIN REACH. NO OTHER NEEDS AT THIS TIME
--- NOTE | 2020-08-03 09:09 | NUR ---
PT ALERT AND ORIENTED PT REPORTS SOME PERSISTING NAUSEA SO PRN ZOFRAN ADMINISTERED. AM ASSESSMENT COMPLETED AND CALL LIGHT AND H2O IN REACH. PT ASSISTED UP TO RESTROOM STATES SHES STILL HAVING FREQUENT LOOSE STOOLS. AGREES TO CALL WHEN FINISHED.
--- NOTE | 2020-08-03 10:13 | NUR ---
PATIENT RESTING IN CHAIR. FRESH ICE GIVEN. CALL LIGHT WITHIN REACH. NO FURTHER NEEDS AT THIS TIME
--- NOTE | 2020-08-03 10:20 | NUR ---
Spoke with Martha, cont. to not feel well. States she vomitied this am, cont. with pain. Wanting to know if she will qualify for a walker. Informed I will talk with PT. Also discussed if she may need 02 on dc as she is still using 2L. Updated walker and O2 are usually order the day before of the day of dc to confirm need.
--- NOTE | 2020-08-03 12:25 | NUR ---
PT SITTING UP IN BED ALERT AND ORIENTED WATCHING TV. PT DENIES PAIN NAUSEA OR SOB AT REST. CALL LIGHT AND H2O IN REACH. PT DENIES NEEDS OR CONCERNS.
--- NOTE | 2020-08-03 14:21 | NUR ---
PT SITTING UP IN BED ALERT AND ORIENTED PT REPORTS PERSISTING NAUSEA. "IT WENT AWAY FOR A WHILE BUT NOW IT'S BACK". PRN IV ZOFRAN ADMINISTERED PER PT REQUEST. ASSESSMENT COMPLETED. NO FURTHER NEEDS OR CONCERNS VOICED. PT DENIES PAIN OR SOB AND IS SATTING IN MID 90'S ON 2LPNC. CALL LIGHT AND H2O IN REACH.
--- NOTE | 2020-08-03 14:23 | NUR ---
CALL LIGHT ANSWERED. PATIENT USING THE BATHROOM. PATIENT BACKS TO BED. ONE PERSON ASSISTING. WARM BLANKET PROVIDED. CALL LIGHT WITHIN REACH. NO OTHER NEEDS AT THIS TIME
--- NOTE | 2020-08-03 14:35 | NUR ---
ASSISTED PT TO RESTROOM WITH INSTRUCTIONS TO PULL CORD WHEN DONE.
--- NOTE | 2020-08-03 14:52 | NUR ---
PATIENT RESTING IN BED. CALL LIGHT WITHIN REACH. NO FURTHER NEEDS AT THIS TIME
--- NOTE | 2020-08-03 15:17 | OR ---
[facility] [address], [place] [address] Signed DATE OF OPERATION: 07/30/2020 SURGEON: Ryan Avina MD PREOPERATIVE DIAGNOSES: 1. Bilateral symptomatic malignant pleural effusions. 2. Metastatic breast cancer. POSTOPERATIVE DIAGNOSES: 1. Bilateral symptomatic malignant pleural effusions. 2. Metastatic breast cancer. PROCEDURE: Left thoracoscopy with talc pleurodesis. ANESTHESIA: General endotracheal; Marc Jose ELECTRICAL AND INSTRUMENTATION MECHANIC; dual lumen intubation, left-sided. INDICATION: This 60-year-old Citizen Of [place] woman is from [place], [place], is a patient Dr. Benja Lloyd and Dr. Kj Laws. She is known to have metastatic breast cancer with bilateral pleural effusions, most recently, the left more problematic. She has undergone several thoracenteses by me and others on the right side and most recently thoracentesis on the left side for significantly symptomatic left pleural effusion. She had been offered pleurodesis in the past and had declined, but now is willing to go forward with it. We anticipate to do pleurodesis on the left side as it is a more symptomatic side it appears. The risks of bleeding, infection, failure of pleurodesis, and other unforeseen complications related to pleurodesis were reviewed with her, she understands and wished to proceed. FINDINGS: Good dual-lumen intubation was noted and decompression of the left lung well tolerated by the patient. She had metastatic lesions of the parenchyma of the lung and likely some on the pleura as well. A talc pleurodesis was accomplished and a 32-Micronesian chest tube was ultimately placed. DESCRIPTION OF PROCEDURE: The patient was brought to the operating room and given a dual-lumen intubation left-sided. Flexible bronchoscopy was used to confirm the left-sided intubation and good function of the tube. She was placed in the lateral position, left side up and Electronically Signed By: RYAN AVINA MD 08/03/20 1517 PATIENT NAME: OSIRIS RIVERA OPERATIVE REPORT DATE OF : 56 REPORT #: [id number] PHYSICIAN: RYAN AVINA MD PCP: BENJA LLOYD MD REPORT IS CONFIDENTIAL AND NOT TO BE RELEASED WITHOUT AUTHORIZATION [facility] [address], [place] [address] Signed ventilation confirmed. She was securely padded throughout including axillary roll on the right side. The left chest wall was prepared with a chlorhexidine solution and draped sterilely. In the anterior axillary line and the mid thorax, a transverse incision was made approximately over the 7th or 8th rib and entry into the pleural space undertaken with a hemostat and digital examination. The lung was then allowed to decompress. Suction with [place] device, suctioned free approximately 450 mL of reddish neri fluid. A 10 mm 30-degree thoracoscope was then placed in the pleural space and examination undertaken. Good single lung ventilation was noted and it was well tolerated. There were several metastatic lesions within the parenchyma of the lung in both left upper and lower lobes and appearance of the pleura that was suggestive of miliary metastasis as well. Irrigation was undertaken and the suctioning undertaken. It appeared that the lung was free enough to allow for good expansion for affective pleurodesis. The posterior 5 mm port was then placed under direct visualization. Ultimately, a 5 mm trocar used to allow for introduction of instruments. Talc pleurodesis was anticipated. The delivery system with a catheter was used, which was somewhat ineffective in distributing approach for talc on that basis. Additional talc was obtained, placed into a slurry and delivered to the apex posteriorly and anteriorly as much as possible. Additional irrigation fluid was infused to distribute talc elsewhere. A 5 mm angled scope was then exchanged for the larger one in place in the posterior incision to allow for direct placement of a 32-Micronesian straight chest tube in a superior-posterior direction. The tube was secured to the skin with a Prolene suture and the chest tube secured to a closed system Pleur-Evac device. The posterior 5 mm port was closed with Vicryl and a Steri-Strip applied. Connection of the tubing to the Pleur-Evac device was secured with pink tape. Sterile dressing was applied and pink tape was used to secure the chest tube to the left superior hip area. She was returned to a supine position ultimately extubated and transferred to the recovery room in good condition. There was no evidence of air leak on the Pleur-Evac device and withdrawal of additional fluid that had been infused was noted. A 20 mm suction was applied to the device. BLOOD LOSS: Minimal. COMPLICATIONS: None. Electronically Signed By: RYAN AVINA MD 08/03/20 1517 PATIENT NAME: OSIRIS RIVERA OPERATIVE REPORT DATE OF : 56 REPORT #: [id number] PHYSICIAN: RYAN AVINA MD PCP: BENJA LLOYD MD REPORT IS CONFIDENTIAL AND NOT TO BE RELEASED WITHOUT AUTHORIZATION [facility] [address], [place] [address] Signed MD MELANIE Navas/MODL /[id number] cc: MD Kj Schultz MD Copies: BENJA LLOYD MD, ROBERT C MD ~ Electronically Signed By: RYAN AVINA MD 08/03/20 1517 PATIENT NAME: OSIRIS RIVERA OPERATIVE REPORT DATE OF : 56 REPORT #: [id number] PHYSICIAN: RYAN AVINA MD PCP: BENJA LLOYD MD REPORT IS CONFIDENTIAL AND NOT TO BE RELEASED WITHOUT AUTHORIZATION
--- NOTE | 2020-08-03 15:26 | NUR ---
Patient was seen as requested by community planner regarding need for her to get a walker at home. Patient demonstrated slow darryn and decrease activity tolerance doing gait for 22 feet and has dyspnea 6/10. O2 saturation was 94-95% at 1.5 L O2. She needs at least 1 minute sitting rest before able to stand. Recommending Front Wheel Walker for safety and stability of patient for household ambulation before going home due to increase risk of falls seconday to current diagnosis of cancer and patient lives alone.
--- NOTE | 2020-08-03 16:05 | NUR ---
PT SITTING UP IN BED ALERT AND ORIENTED, RESPIRATIONS EVEN AND UNLABORED ON 1.5LPNC. PT DENIES NEEDS OR CONCERNS.
--- NOTE | 2020-08-03 17:34 | NUR ---
PT SITTING UP IN BED ALERT AND ORIENTED WATCHING COLD CASE FILES ON TV. PT REPORTS SOME NAUSEA AND PAIN TO LEFT CHEST. FRESH ICE WATER, PO OPIOD AND IV ZOFRAN ADMINISTERED PER PT REQUEST. DINNER ARRIVED AND PT NOW EATING. NO FURTHER NEEDS OR CONCERNS VOICED.
--- NOTE | 2020-08-03 19:26 | NUR ---
SHIFT REPORT FROM NURSE RAMACHANDRAN. PT SITTING UP IN BED WATCHING TV. PT REPORTS LITTLE PAIN BUT DOES STILL FEEL SOME NAUSEA. WILL CONTINUE TO MONITOR. CALL LIGHT WITHIN REACH
--- NOTE | 2020-08-03 21:00 | NUR ---
I&O DONE. VITALS DONE. CALL LIGHT IN REACH. NO OTHER NEEDS AT THIS TIME
--- NOTE | 2020-08-03 21:01 | NUR ---
IN ROOM FOR EVENING MEDS AND ASSESSMENT. PT ALERT AND ORIENTED, SITTING UP IN BED. PT REPORTS THAT NAUSEA IS TOLERABLE, PAIN IS 5/10 AND TOLERABLE FOR THE PT. LOWER LOBE LUNG SOUNDS REMAIN UNCHANGED, MORE PRONOUNCED ON LEFT SIDE. WOUND DRESSING INTACT, DRY, SHOWING SOME SHADOWING UNDER WHITE TAPE. VSS. PT TO CALL FOR NEEDS. CALL LIGHT WITHIN REACH.
--- NOTE | 2020-08-03 21:02 | NUR ---
ROUNDED CHARGE. PRIMARY RN ANITA IN ROOM. pt HAS NO CONCERNS OR REQUESTS AT THIS TIME.
--- NOTE | 2020-08-03 22:13 | NUR ---
CHECKED ON PT. PT REPORTS HER STOMACH/NAUSEA IS IMPROVED. TITRATED O2 TO 1.5L AND PT IS MAINTAINING SPO2 AT 95% SITTING UP. PT HAD BEEN ON COMMODE; CLEAR YELLOW URINE. NO FURTHER NEEDS AT THIS TIME. CALL LIGHT WITHIN REACH
--- NOTE | 2020-08-03 22:50 | NUR ---
PT REQUEST PRN PAIN MEDS FOR PAIN 04/10. PRN PERCOCET PROVIDED. NO OTHER NEEDS AT THIS TIME.
--- NOTE | 2020-08-04 00:39 | NUR ---
CHECKED ON PT. PT SLEEPING WITH EVEN UNLABORED BREATHING. SPO2 AT 95% ON 1.5LPM. NO APPARENT SIGNS OF DISTRESS.
--- NOTE | 2020-08-04 04:07 | NUR ---
PATIENT CALLED TO USE THE BED SIDE COMMODE. CALL ANSWERED AND ASSISTED TO USE BED SIDE COMMODE. PATIENT MENTIONED HAVING SHORTNESS OF BREATH AND BLOOD O2 WAS 89. RN NOTIFIED AND O2 WAS TURNED FROM 1.5L TO 2L NC BY RN. NOW BLOOD O2 IS AT 91. PATIENT IS BACK TO BED. CALL LIGHT IN REACH. FRUESH WATER GIVEN. NO OTHER NEEDS AT THIS TIME.
--- NOTE | 2020-08-04 07:00 | NUR ---
IN ROOM FOR MORNING MEDS. PT REPORTS THAT SHE HAD VOMITED. SMALL AMOUNT EMESIS IN EMESIS BAG. PRN ZOFRAN 4MG ADMINISTERED. VSS. URINE OUTPUT QS. INFUSION INFUSING ORDRED.
--- NOTE | 2020-08-04 07:27 | NUR ---
this rn received report from niurka mazariegos. pt margarito stephens in bed awake. pt states that she is feeling "so-so" this am. this rn received report that pt was feeling nauseous this am. pt states that the zofran is starting to work.
--- NOTE | 2020-08-04 09:20 | NUR ---
THIS RN IN PTS ROOM TO GIVE MORNING MEDS AND DO MORNING ASSESSMENT. PT STATES HER PAIN IS 6/10 AND DOESN'T WANT PAIN MEDS, THIS RN EDUCATED PT THAT THE PAIN MEDS DO TAKE A BIT TO KICK IN AND TO LET THIS RN KNOW WHEN THE PAIN STARTS TO GET NON-TOLERABLE. PT AGREEABLE TO TAKING A PERCOCET AT THIS TIME FOR PAIN IN HER LEFT SIDE FROM THE CHEST TUBE. PT HAS NO OTHER COMPLAINTS OR CONCERNS AT THIS TIME.
--- NOTE | 2020-08-04 11:50 | NUR ---
Note in chart of possible dc today. Texted Dr. Muñoz and requested note added to chart for 02 and FWW as this will require auth from [facility]. Return text stating he will order and document note, when he is finished with surgery.
--- NOTE | 2020-08-04 12:33 | NUR ---
PT REPORTING NAUSEA. PRN ZOFRAN ADMINSTERED. PT UP IN CHIAR WITH LUNCH. REPORTS PAIN AT 5/10. CALL LIGHT IN REACH. DENEIS FURTHER NEEDS.
--- NOTE | 2020-08-04 14:00 | NUR ---
Rx for 02 with 02 qualifier and FWW walker completed. Called and spoke with [facility], they are unsure if they will be able to get auth today. Face sheet, H&P, 02 Qualifier, progess notes, CXR report, prescriptions for 02 and FWW faxed to Vera at [facility].
[2020-08-04] MEDS ORDERED: HYDROCODONE-ACE15 M3 PO ×2 (14:45→15:06)
[2020-08-04] MEDS ORDERED: ACETAMINOPHEN500 MG PO (14:45)
[2020-08-04] MEDS ORDERED: ONDANSETRON4 MG/2 M1 IV (14:46)
[2020-08-04] MEDS ORDERED: PEPCID20 MG PO (14:47)
--- NOTE | 2020-08-04 15:00 | NUR ---
Received fax from [facility]. Requesting their RX be completed and returned. RX completed and faxed to [facility].
[2020-08-04] MEDS ORDERED: ONDANSETRON ODT4 MG PO (16:13)
--- NOTE | 2020-08-04 16:16 | NUR ---
NOtified by Dr. Muñoz he plans on pt another night. Called [facility] and updated pt will not go home until tomorrow. Number for daughter given to call to deliver oxygen. Confirmed they will deliver 02 to the hospital for pt to use for trip from [place] to [place] for DC. I spoke with Martha in the 02 department at [facility].
--- NOTE | 2020-08-04 16:33 | NUR ---
PT CALL LIGHT ON. PT REQUESTS PAIN MEDICATION FOR 8/10 PAIN AND ASSISTANCE UP TO THE RESTROOM. 1 PERSON ASSIST, FWW UP TO RESTROOM. PT VOIDS WITHOUT ISSUE. PAIN MEDICATION GIVEN (SEE EMAR). PT UP TO CHAIR. WARM BLANKETS PROVIDED. NO ADDITIONAL REQUESTS OR COMPLAINTS AT THIS TIME. O2 AT 94% ON 2L O2 BY NC.
--- NOTE | 2020-08-04 18:33 | NUR ---
THIS RN IN PTS ROOM TO CHECK ON PTD. PT STATES THAT HER PAIN IS DOING WELL AND THAT HER NAUSEA IS OKAY FOR NOW. PT STATES THAT SHE FEELS BETTER AVTER HAVING THE LIQUID PAIN MEDS. PT HAS NO CONCERNS AT THIS TIME.
--- NOTE | 2020-08-04 18:43 | NUR ---
PATIENT UP TO BATHROOM AND BACK TO BED, SBA FWW. FRESH WATER GIVEN. CALL LIGHT IN REACH. NO FURTHER NEEDS AT THIS TIME.
--- NOTE | 2020-08-04 19:30 | NUR ---
BEDSIDE REPORT RECEIVED FROM MARITZA GARCIA. pt IS UP IN CHAIR. 2L OXYGEN BY NC IN PLACE. SPO2 WNL ORDERED, CPOX IN PLACE. pt DENIES PAIN. C/O NAUSEA. PRN NAUSEA MEDICATIONS ADMINISTERED. CALL LIGHT IN REACH. pt HAS NO ADDITIONAL REQUESTS.
--- NOTE | 2020-08-04 20:35 | NUR ---
PATIENT WANTED TO GO FROM CHAIR TO BATHROOM. STA WHEN WALKING. BED SIDE COMMODE WAS SET UP FOR NIGHT TOILETING. I&O AND VITALS ARE DONE. BACK TO BED. CALL LIGHT IN REACH. NO THER NEEDS AT THIS TIME.
--- NOTE | 2020-08-04 21:20 | NUR ---
pt RESTING IN BED AWAKE. RATES PAIN 6-7/10 IN BOTH SIDES. PRN PAIN MEDICATION ADMINISTERED. ASSESSMENT COMPLETE. LUNG SOUNDS COARSE LEFT LOWER LOBE, WHEEZES AUSCULTATED IN UPPER LOBES BILATERALLY, RIGHT LOWER LOBE DIMINISHED. DENIES NAUSEA AT THIS TIME. REQUESTING BREAK FROM SCDS. IVF INFUSING WNL ORDERED. WARM BLANKET AND ICE WATER PROVIDED. CALL LIGHT IN REACH.
--- NOTE | 2020-08-04 23:38 | NUR ---
CALL LIGHT ANSWERED. pt UP TO [facility] FOR VOID WITH FREDERICK MCKINNEY ASSIST. pt C/O NAUSEA. PRN MEDICATION ADMINISTERED. CRACKERS PROVIDED REQUESTED. CALL LIGHT IN REACH.
--- NOTE | 2020-08-05 02:40 | NUR ---
CHECKED ON pt. RESTING IN BED WITH EYES CLOSED. BREATHING EQUAL AND UNLABORED. LIGHTS OFF IN ROOM. SPO2 WNL ON 2L OXYGEN BY NC.
--- NOTE | 2020-08-05 05:19 | NUR ---
PATIENT RESTED WELL THIS SHIFT. PRN PAIN AND NAUSEA MEDICATION ADMINISTERED. NO EMESIS NOTED. VOIDING QS. 2L OXYGEN BY NC IN PLACE, SPO2 WNL. USING CALL LIGHT APPROPRIATELY. IVF INFUSING WNL ORDERED.
--- NOTE | 2020-08-05 05:49 | NUR ---
PT CALLED FOR HELP BACK TO BED FROM BSC. FRESH WATER GIVEN AND PT DENIES FURTHER NEEDS. CALL LIGHT IS CLOSE.
--- NOTE | 2020-08-05 06:02 | NUR ---
CHECKED ON pt. RESTING IN BED AWAKE, REQUESTING TO REST, HAVE VS TAKEN AT LATER TIME. CALL LIGHT IN REACH.
--- NOTE | 2020-08-05 06:40 | NUR ---
pt RESTING IN BED. ASSESSMENT COMPLETE. DRESSING INTACT LEFT SIDE. DENIES PAIN, REFUSES SCHEDULED TYLENOL AT THIS TIME. ICE WATER REFILLED. 2L OXYGEN BY NC IN PLACE, SPO2 WNL. CALL LIGHT IN REACH.
--- NOTE | 2020-08-05 07:44 | NUR ---
THIS RN RECIEVED REPORT FROM VERONICA SALAS. REPORT GIVEN OUTSIDE OF ROOM TO ALLOW PT TO REST THIS AM.
--- NOTE | 2020-08-05 08:40 | NUR ---
Notified by DME, [employer] did not auth 02. It is under case advocate and may take 14 days. Options are for pt to rent equipment for $69.70 or sign an insurance waiver, they will supply the oxygen, but if insurance declines it will cost $360.00 OOP. They request I speak to her as soon as possible as the service parts driver is waiting to begin his route. Martha chose monthly payment. DME notified and will deliver o2 concentrator and tank to the hospital.
--- NOTE | 2020-08-05 09:10 | NUR ---
THIS RN IN PTS ROOM WITH [facility] EQUITIES ANALYST JANAY. JANAY ABLE TO GIVE PT HER HEPARIN SHOT THIS AM AND DID WITHIN PROCEDURE AND POLICY. PT STATES THAT HER PAIN IS WELL MANAGED AT THIS TIME BUT DOES STATE SHE IS HAVING SOME NAUSEA. THIS RN PROVIDED PT 4MG OF SL ZOFRAN. PT HAS NO OTHER CONCERNS AT THIS TIME
--- NOTE | 2020-08-05 09:15 | NUR ---
THIS RN REMOVED PTS CPOX. PT STAING WELL AND WILL BE GOING HMOE ON O2
--- NOTE | 2020-08-05 09:30 | NUR ---
Returned to room and explained further how insurance auth works and why her 02 is being declined. Martha has many questions about hospice and I asked if she would like me to contact the hospice in [place] and have them call her. She requests I do so and send her chart. Called and spoke with [facility] [phone]. They will call her tomorrow and visit if she likes. H&P, notes, face sheet, surgery report faxed.
--- NOTE | 2020-08-05 13:30 | NUR ---
Notified by Dr. Muñoz he is pt's room. To room and explained by 02 was not authed, updated chart sent to hospice. Small Oxygen concentrator is in the room with portable 02 tank. Walker is also in the room. Pt has questions for Dr. Muñoz and he answered. Pt plans on dc to home when daughter finishes work and drives 1.5 hours to [place]. Pt states understanding on use of 02 as education was provided by milk wagon driver. She denies needs for dc. Pt has prescriptions at [facility] and I stated my concern she will arrive after they close, she states they are open until [address] Muñoz reminder her to machine operator hop picker her meds on her way home.
--- NOTE | 2020-08-05 13:44 | NUR ---
PT SITTING IN CHAIR, WATCHING TV AND HOLDING A VOID BAG. PT HAS BEEN SPITTING IN BAG, NO NAUSEA. PT PLANS TO DC TODAY, HER DAUGHTER WILL CHAPTER RELATIONS ADMINISTRATOR. GAVE BLESSING, PT REQUESTED PRAYER. WILL FOLLOW NEEDED
== END 2020-08-05 16:30 | disposition home or self-care (01) | DRG 167 ==
LOC: DSVR 07-30 07:52 → MS 07-30 12:30 → DS 07-31 12:30 → EDSTATUS 07-31 12:30 → MS 07-31 12:30
PROVIDERS: ADMIT Surgery; ATTEND Surgery
PROC: 0W9B30Z Drainage of Left Pleural Cavity with Drainage Device, Percutaneous Approach (ICD-10-PCS; 2020-07-30)
PROC: 3E0L4GC Introduction of Other Therapeutic Substance into Pleural Cavity, Percutaneous Endoscopic Approach (ICD-10-PCS; principal; 2020-07-30 08:45)
DX: C78.2 Secondary malignant neoplasm of pleura (principal); C78.00 Secondary malignant neoplasm of unspecified lung; C79.51 Secondary malignant neoplasm of bone; C50.919 Malignant neoplasm of unspecified site of unspecified female breast; J91.0 Malignant pleural effusion; K59.00 Constipation, unspecified; F32.9 Major depressive disorder, single episode, unspecified; R13.10 Dysphagia, unspecified; E03.9 Hypothyroidism, unspecified; Z87.891 Personal history of nicotine dependence; Z79.899 Other long term (current) drug therapy; Z79.891 Long term (current) use of opiate analgesic
CPT/HCPCS: 36415; 71045; 80053; 85025; 93005; 93010; 94760; 94761; 94762; J0690; J1100; J1170; J1644; J1885; J2001; J2250; J2270; J2370; J2405; J2704; J3010; J7121